=== PATIENT | male | born 1955 | race Asian ===

== ENCOUNTER → 2023-09-23 | Day surgery (SDC) | payer MEDICARE, BC ==
[~2023-09-23] VITALS: Ht 167.6 cm; Wt 96.6 kg
[~2023-09-23] MED LIST: ASPI-986 PO; ATEN50TA PO; CA C1TAB87 PO; GENTAMICIN SULF 40MG/ML 2ML VIAL ONE; LACTATED RINGERS 1,000 ML IV SCH; LIDOCAINE HCL/EPINEPHRINE 1%-EPI 1:100,000 20 ML VIAL ONE; LISI20TA31 PO; MELO-106 PO; MULT-1146 PO; POTASSIUM PO; THROMBIN (BOVINE) 5000 UNITS/VIAL TOP ONE
== END | disposition home or self-care (01) ==
LOC: OR 05:15
PROVIDERS: ATTEND Neurological Surgery
DX: M48.02 Spinal stenosis, cervical region (principal); Z53.8 Procedure and treatment not carried out for other reasons; M50.20 Other cervical disc displacement, unspecified cervical region; I10 Essential (primary) hypertension; Z79.899 Other long term (current) drug therapy; Z98.890 Other specified postprocedural states; Z88.0 Allergy status to penicillin; Z88.8 Allergy status to other drugs, medicaments and biological substances; Z79.82 Long term (current) use of aspirin
CPT/HCPCS: 86850; 86900; 86901; 36415; J1580; J3490 ×2; Z7610 ×3

== ENCOUNTER 2023-09-25 05:08 | Inpatient (IN) | payer MEDICARE, BC ==
[2023-09-25] VITALS (38 sets, daily range): BP systolic 68–119; BP diastolic 41–79; PULSE 49–94; RESP 11–23; TEMP 96.4–98.5
[~2023-09-25] VITALS: Ht 167.6 cm; Wt 95.3 kg
[~2023-09-25 05:08] MED LIST changes: -GENTAMICIN SULF 40MG/ML 2ML VIAL ONE; -LACTATED RINGERS 1,000 ML IV SCH; -LIDOCAINE HCL/EPINEPHRINE 1%-EPI 1:100,000 20 ML VIAL ONE; -MELO-106 PO; -THROMBIN (BOVINE) 5000 UNITS/VIAL TOP ONE
[2023-09-25] MEDS ORDERED: LACTATED RINGERS 1,000 ML IV SCH (05:30)
[2023-09-25] MEDS ORDERED: SKIN ADHESIVE 0.7 GM EA TOP ONE (06:29)
[2023-09-25] MEDS ORDERED: LIDOCAINE HCL/EPINEPHRINE 1%-EPI 1:100,000 20 ML VIAL ONE (06:29)
[2023-09-25] MEDS ORDERED: GENTAMICIN SULF 40MG/ML 2ML VIAL ONE (06:29)
[2023-09-25] MEDS ORDERED: THROMBIN (BOVINE) 5000 UNITS/VIAL TOP ONE (06:29)
[2023-09-25] MEDS ORDERED: DEXAMETHASONE 4MG/ML 1ML VIAL ONE (06:58)
[2023-09-25] MEDS ORDERED: ONDANSETRON HCL 4MG/2ML INJ ONE (06:58)
[2023-09-25] MEDS ORDERED: ROCURONIUM BROMIDE 10MG/ML VIAL 5ML IV ONE ×2 (06:58→08:39)
[2023-09-25] MEDS ORDERED: PROPOFOL 200MG/20ML VIAL IV ONE ×2 (06:58→08:39)
[2023-09-25] MEDS ORDERED: MIDAZOLAM HCL 2 MG/2 ML VIAL ONE (06:59)
[2023-09-25] MEDS ORDERED: FENTANYL CITRATE/PF 50MCG/ML 2ML VIAL ONE (06:59)
[2023-09-25] MEDS ORDERED: GLYCOPYRROLATE 0.2 MG/ML 2ML VIAL ONE ×2 (06:59)
[2023-09-25] MEDS ORDERED: NEOSTIGMINE METHYLSULFATE 1MG/ML 10 ML VIAL ONE (07:00)
[2023-09-25] MEDS ORDERED: CLINDAMYCIN 600MG PREMIX 50 ML IV ONE ×2 (07:11)
[2023-09-25] MEDS ORDERED: NALOXONE HCL 0.4MG/ML VIAL IV PRN (07:30)
[2023-09-25] MEDS ORDERED: SUCCINYLCHOLINE CHLORIDE 200MG/10ML IV ONE (08:39)
[2023-09-25] MEDS ORDERED: HYDROMORPHONE HCL/PF 2MG/ML CPJ ONE ×2 (08:58→10:36)
[2023-09-25] MEDS ORDERED: MEPERIDINE HCL/PF 25MG/ML CPJ IV PRN ×2 (09:15)
[2023-09-25] MEDS ORDERED: LABETALOL 5MG/ML SYR 20 MG/4 ML SYRINGE IV PRN ×2 (09:15)
[2023-09-25] MEDS ORDERED: ONDANSETRON HCL 4MG/2ML INJ IV PRN ×3 (09:15→10:45)
[2023-09-25] MEDS ORDERED: HYDROMORPHONE HCL/PF 2MG/ML CPJ IV PRN ×2 (09:15)
[2023-09-25] MEDS ORDERED: LABETALOL HCL 5MG/ML VIAL 20ML IV ONE (10:09)
[2023-09-25] MEDS ORDERED: HYDRALAZINE 20MG/ML VIAL ONE (10:09)
[2023-09-25] MEDS ORDERED: MAGNESIUM/ALUMINUM HYDROXIDE/SIMETHICONE 30ML UDC PO PRN (10:45)
[2023-09-25] MEDS ORDERED: IPRATROPIUM/ALBUTEROL 0.5-3(2.5)MG/3ML NEB HHN PRN (10:45)
[2023-09-25] MEDS ORDERED: DOCUSATE SODIUM 100MG CAPSULE PO PRN (10:45)
[2023-09-25] MEDS: DEXAMETHASONE 4MG/ML 1ML VIAL IV SCH ×2 (11:39→17:10)
[2023-09-25] MEDS: DEXT 5%/LACTATED RINGERS 1,000 ML IV SCH ×3 (11:40→23:48)
[2023-09-25] MEDS ORDERED: NICARDIPINE 100 MG in SODIUM CHLORIDE 0.9% 60 ML IV PRN (12:00)
[2023-09-25] MEDS ORDERED: CEFAZOLIN 1000MG PREMIX 50 ML IV NR (14:00)
[2023-09-25] MEDS ORDERED: MELO-106 PO (14:34)
[2023-09-25 15:54] LABS: HEMATOCRIT. 42.7 % (42.0-52.0); HEMOGLOBIN. 13.9 g/dL (14.0-18.0); MEAN CORPUSCULAR HEMOGLOBIN 30.4 pg (28.0-32.0); MEAN CORPUSCULAR HGB CONC 32.5 g/dL (31.0-37.0); MEAN CORPUSCULAR VOLUME 93.4 fL (80.0-94.0); RED BLOOD CELL COUNT 4.58 mill/uL (4.7-6.1); RED CELL DISTRIBUTION WIDTH 13.9 % (11.6-14.6); WHITE BLOOD COUNT 11.4 x1000/uL (4.5-11.0)
[2023-09-25 16:01] LABS: DIFFERENTIAL COMMENT 1
[2023-09-25 16:19] LABS: ALANINE AMINOTRANSFERASE 21 IU/L (10-49); ALBUMIN 3.8 g/dL (3.2-4.8); ASPARTATE AMINOTRANSFERASE 19 IU/L (<34); BILIRUBIN TOTAL 0.7 mg/dL (0.1-1.0); CALCIUM 9.4 mg/dL (8.7-10.4); CARBON DIOXIDE 24 mEq/L (21-32); CHLORIDE 106 mEq/L (98-107); GLUCOSE 142 mg/dL (70-105); POTASSIUM 4.3 mEq/L (3.5-5.1); PROTEIN TOTAL 6.3 g/dL (6.0-8.3); SODIUM 138 mEq/L (136-145); UREA NITROGEN BLOOD 11 mg/dL (9-23)
[2023-09-25 16:22] LABS: MEAN PLATELET VOLUME 8.7 fl (7.4-10.4); PLATELET 196 x1000/uL (130-400)
[2023-09-25 16:34] LABS: CLARITY URINE CLEAR (CLEAR); COLOR URINE YELLOW (YELLOW); GLUCOSE URINE NEGATIVE (NEGATIVE); KETONES URINE 2+ (NEGATIVE); LEUKOCYTE ESTERASE URINE NEGATIVE (NEGATIVE); NITRITE URINE NEGATIVE (NEGATIVE); OCCULT BLOOD URINE NEGATIVE (NEGATIVE); PROTEIN URINE 1+ (NEGATIVE); SPECIFIC GRAVITY URINE 1.014 (1.005-1.030); UROBILINOGEN URINE 0.2 E.U./dL (0.2-1.0)
[2023-09-25 16:35] LABS: PLATELET ESTIMATE NORMAL
[2023-09-25 17:00] LABS: BACTERIA URINE 1+; RBC URINE 0-2 /hpf (0-2); SQUAMOUS EPITHELIAL CELL URINE NONE SEEN /lpf (RARE/1+)
[2023-09-25] MEDS: PANTOPRAZOLE 40MG DR TABLET PO SCH (17:10)
[2023-09-25] MEDS ORDERED: SODIUM CHLORIDE 0.9% 250 ML IV NR ×2 (18:45→19:00)
[2023-09-25] MEDS ORDERED: NOREPINEPHRINE 8MG/250ML PMX 250 ML IV PRN (18:47)
[2023-09-25] MEDS: MORPHINE SULFATE 4 MG/ML CPJ (NOT FOR IM USE) IV PRN ×2 (20:22→23:24)
[2023-09-25] MEDS ORDERED: CEFAZOLIN SODIUM 1000MG/VIAL IV SCH (22:00)
[2023-09-26] VITALS (38 sets, daily range): BP systolic 91–125; BP diastolic 48–80; PULSE 67–86; RESP 12–25; TEMP 97.2–98.8
[2023-09-26] MEDS: DEXAMETHASONE 4MG/ML 1ML VIAL IV SCH ×4 (00:43→17:47)
[2023-09-26] MEDS: CEFAZOLIN 1000MG PREMIX 50 ML IV SCH ×3 (00:43→17:47)
[2023-09-26] MEDS: HYDROCODONE/ACETAMINOPHEN 5/325MG TABLET PO PRN ×3 (00:44→19:16)
[2023-09-26] MEDS: MORPHINE SULFATE 4 MG/ML CPJ (NOT FOR IM USE) IV PRN ×3 (00:45→20:00)
[2023-09-26 05:34] LABS: CALCIUM 9.1 mg/dL (8.7-10.4); CARBON DIOXIDE 25 mEq/L (21-32); CHLORIDE 107 mEq/L (98-107); CREATININE 0.9 mg/dL (0.6-1.3); GLUCOSE 176 mg/dL (70-105); POTASSIUM 4.3 mEq/L (3.5-5.1); SODIUM 137 mEq/L (136-145); T4 FREE 1.52 ng/dL (0.89-1.76); THYROID STIMULATING HORMONE 0.86 uIU/mL (0.55-4.78); UREA NITROGEN BLOOD 10 mg/dL (9-23)
[2023-09-26 05:40] LABS: HEMOGLOBIN. 12.6 g/dL (14.0-18.0); MEAN CORPUSCULAR HEMOGLOBIN 30.2 pg (28.0-32.0); MEAN CORPUSCULAR HGB CONC 32.2 g/dL (31.0-37.0); MEAN CORPUSCULAR VOLUME 93.7 fL (80.0-94.0); MEAN PLATELET VOLUME 8.1 fl (7.4-10.4); PLATELET 205 x1000/uL (130-400); RED BLOOD CELL COUNT 4.16 mill/uL (4.7-6.1); RED CELL DISTRIBUTION WIDTH 13.6 % (11.6-14.6); WHITE BLOOD COUNT 11.2 x1000/uL (4.5-11.0)
[2023-09-26 06:07] LABS: DIFFERENTIAL COMMENT 1
[2023-09-26] MEDS: PANTOPRAZOLE 40MG DR TABLET PO SCH (07:00)
[2023-09-26] MEDS: DEXT 5%/LACTATED RINGERS 1,000 ML IV SCH ×2 (12:24→23:46)
[2023-09-26 15:34] LABS: PLATELET ESTIMATE NORMAL
[2023-09-26] MEDS: ACETAMINOPHEN 325MG TABLET PO PRN (20:00)
[2023-09-27] MEDS: CEFAZOLIN 1000MG PREMIX 50 ML IV SCH ×2 (00:41→09:13)
[2023-09-27] MEDS: MORPHINE SULFATE 4 MG/ML CPJ (NOT FOR IM USE) IV PRN (07:05)
[2023-09-27] MEDS: PANTOPRAZOLE 40MG DR TABLET PO SCH (07:06)
[2023-09-27 08:00] VITALS: BP 148/80; PULSE 84; RESP 19; TEMP 96.6
[2023-09-27 08:56] LABS: HEMATOCRIT. 38.3 % (42.0-52.0); HEMOGLOBIN. 12.6 g/dL (14.0-18.0); MEAN CORPUSCULAR HEMOGLOBIN 30.3 pg (28.0-32.0); MEAN CORPUSCULAR HGB CONC 32.8 g/dL (31.0-37.0); MEAN CORPUSCULAR VOLUME 92.6 fL (80.0-94.0); MEAN PLATELET VOLUME 8.5 fl (7.4-10.4); PLATELET 175 x1000/uL (130-400); RED BLOOD CELL COUNT 4.14 mill/uL (4.7-6.1); RED CELL DISTRIBUTION WIDTH 14.1 % (11.6-14.6); WHITE BLOOD COUNT 14.3 x1000/uL (4.5-11.0)
[2023-09-27 09:00] LABS: DIFFERENTIAL COMMENT 1
[2023-09-27] MEDS: ACETAMINOPHEN 325MG TABLET PO PRN (09:13)
[2023-09-27] MEDS: DEXT 5%/LACTATED RINGERS 1,000 ML IV SCH (10:23)
[2023-09-27 12:00] VITALS: BP 142/80; PULSE 76; RESP 18; TEMP 97.9
[2023-09-27 16:00] VITALS: BP 155/87; PULSE 70; RESP 18; TEMP 97.5
[2023-09-27] MEDS ORDERED: LISINOPRIL 20MG TABLET PO SCH (16:40)
[2023-09-27 17:48] VITALS: BP 144/82; PULSE 83; TEMP 97.5; O2SAT 97
[2023-09-27] MEDS ORDERED: ATENOLOL 50 MG TABLET PO SCH (21:00)
[2023-09-27 23:04] LABS: PLATELET ESTIMATE NORMAL
[2023-09-28] MEDS ORDERED: FAMOTIDINE 20MG TABLET PO SCH (09:00)
== END 2023-09-27 18:10 | disposition home or self-care (01) | DRG 459 ==
LOC: OR 05:08 → MICUNO 11:23 → 6EST 09-26 23:54
PROVIDERS: ADMIT Neurological Surgery; ATTEND Neurological Surgery
PROC: 0RG6071 Fusion of Thoracic Vertebral Joint with Autologous Tissue Substitute, Posterior Approach, Posterior Column, Open Approach (ICD-10-PCS; principal; 2023-09-25)
PROC: 0RB90ZZ Excision of Thoracic Vertebral Disc, Open Approach (ICD-10-PCS; 2023-09-25)
PROC: 02HV33Z Insertion of Infusion Device into Superior Vena Cava, Percutaneous Approach (ICD-10-PCS; 2023-09-25)
PROC: B548ZZA Ultrasonography of Superior Vena Cava, Guidance (ICD-10-PCS; 2023-09-25)
PROC: 4A11X4G Monitoring of Peripheral Nervous Electrical Activity, Intraoperative, External Approach (ICD-10-PCS; 2023-09-25)
DX: M48.04 Spinal stenosis, thoracic region (principal); S24.103A Unspecified injury at T7-T10 level of thoracic spinal cord, initial encounter; G99.2 Myelopathy in diseases classified elsewhere; G82.20 Paraplegia, unspecified; G95.29 Other cord compression; I10 Essential (primary) hypertension; M48.02 Spinal stenosis, cervical region; D72.829 Elevated white blood cell count, unspecified; E66.9 Obesity, unspecified; M17.12 Unilateral primary osteoarthritis, left knee; R73.9 Hyperglycemia, unspecified; M25.78 Osteophyte, vertebrae; D63.8 Anemia in other chronic diseases classified elsewhere; M51.24 Other intervertebral disc displacement, thoracic region; Z91.81 History of falling; Z96.642 Presence of left artificial hip joint; Z68.33 Body mass index [BMI] 33.0-33.9, adult; Z88.0 Allergy status to penicillin; X58.XXXA Exposure to other specified factors, initial encounter; Y93.89 Activity, other specified; Y92.89 Other specified places as the place of occurrence of the external cause; Y99.8 Other external cause status
CPT/HCPCS: 36415; 36573; 71045; 72070; 72146; 76000; 76604; 80048; 80053; 81003; 83036; 84439; 84443; 85025; 86850; 86900; 88304; 88311; 92610; 93970; 97116; 97163; 97166; 97530; C1725; J0330; J0360; J0690; J1100; J1170; J1580; J2250; J2270; J2405; J2704; J2710; J3010; J3490; J7030; J7040; J7121; C1713

== ENCOUNTER → 2024-10-13 | Outpatient (CLI) | payer MEDICARE, BC ==
[~2024-10-13] MED LIST changes: -ASPI-986 PO; +MELO-106 PO; -POTASSIUM PO
== END | disposition home or self-care (01) ==
LOC: CT 13:18
PROVIDERS: ATTEND Neurological Surgery
DX: M47.817 Spondylosis without myelopathy or radiculopathy, lumbosacral region (principal); M48.07 Spinal stenosis, lumbosacral region; M43.16 Spondylolisthesis, lumbar region; M51.27 Other intervertebral disc displacement, lumbosacral region; M25.78 Osteophyte, vertebrae; R29.890 Loss of height
CPT/HCPCS: 72131